=== PATIENT | male | born 1965 | race Caucasian/White ===

== ENCOUNTER 2019-11-12 14:01 | Inpatient (IN) | payer MEDICARE, OTHER ==
[~2019-11-12] VITALS: Ht 185.4 cm; Wt 119.4 kg
[2019-11-12 14:12] VITALS: BP 128/86
[2019-11-12] MEDS ORDERED: BISACODYL 5 MG EC TABLET PO PRN (15:00)
[2019-11-12] MEDS ORDERED: ACETAMINOPHEN 325 MG TABLET PO PRN (15:00)
[2019-11-12] MEDS ORDERED: METOPROLOL TARTRATE 25 MG TAB PO ONE (15:00)
[2019-11-12] MEDS ORDERED: INSULIN LISPRO 100 UNITS/ML, PEN SQ-INSULIN SCH (15:00)
[2019-11-12] MEDS ORDERED: CHLORHEXIDINE 15 ML UDC MM PRN (15:00)
[2019-11-12] MEDS ORDERED: PLEASE ENTER ALLERGIES MC SCH (15:30)
[2019-11-12] MEDS ORDERED: OMEP20TA9 PO (15:48)
[2019-11-12] MEDS ORDERED: METO-264 PO (15:48)
[2019-11-12] MEDS ORDERED: AMLO10TA8 PO (15:48)
[2019-11-12] MEDS ORDERED: TRIA1TAB5 PO (15:48)
[2019-11-12] MEDS ORDERED: LEVO100T5 PO (15:48)
[2019-11-12] MEDS ORDERED: PRAV40TA2 PO (15:48)
[2019-11-12 15:54] LABS: BASOPHILS # (AUTO) 0.06 x10^3/uL (0-0.1); BASOPHILS % (AUTO) 1 % (0-1); EOSINOPHILS # (AUTO) 0.28 x10^3/uL (0-0.4); EOSINOPHILS % (AUTO) 3 % (1-7); LYMPHOCYTES # (AUTO) 2.47 x10^3/uL (1-3.4); LYMPHOCYTES % (AUTO) 24 % (22-44); MD NO; MEAN CORPUSCULAR HEMOGLOBIN 29.3 pg (27.5-34.5); MEAN CORPUSCULAR HGB CONC 33.6 g/dL (33.2-36.2); MEAN CORPUSCULAR VOLUME 87.2 fL (81-97); MEAN PLATELET VOLUME 8.4 fL (7.4-10.4); MONOCYTES % (AUTO) 11 % (2-9); NEUTROPHILS # (AUTO) 6.54 x10^3/uL (1.8-6.8); NEUTROPHILS % (AUTO) 63 % (42-75); PLATELET COUNT 240 x10^3/uL (130-400); RED BLOOD COUNT 5.54 x10^6/uL (4.38-5.82); RED CELL DISTRIBUTION WIDTH 14.6 % (9.4-14.8)
[2019-11-12 16:04] LABS: ALANINE AMINOTRANSFERASE 51 U/L (12-78); ALBUMIN 4.2 g/dL (3.4-5.0); ANION GAP 9 mmol/L (5-15); CALCIUM 9.9 mg/dL (8.5-10.1); CHLORIDE 103 mmol/L (98-107); CREATININE 1.26 mg/dL (0.7-1.3)
[2019-11-12 16:07] LABS: ALKALINE PHOSPHATASE 104 U/L (45-117); BILIRUBIN,TOTAL 0.5 mg/dL (0.2-1.0); TOTAL PROTEIN 8.2 g/dL (6.4-8.2)
[2019-11-12 16:08] LABS: INTERNATIONAL NORMALIZED RATIO 0.94 (0.93-1.1)
[2019-11-12 19:51] VITALS: BP 131/93
[2019-11-12] MEDS: MUPIROCIN OINT 2%, 22GM TP SCH (20:50)
[2019-11-12] MEDS: SODIUM CHLORIDE FLUSH 10ML SYR IVF SCH (20:55)
[2019-11-12 21:36] LABS: MICROSCOPIC NOT IND
[2019-11-12] MEDS: PRAVASTATIN 40 MG TABLET PO SCH (22:01)
[2019-11-13 04:00] VITALS: BP 130/90
[2019-11-13 04:05] VITALS: BP 145/86
[2019-11-13] MEDS: OMEPRAZOLE 20 MG CAPSULE.DR PO SCH (04:32)
[2019-11-13] MEDS: MUPIROCIN OINT 2%, 22GM TP SCH (04:35)
[2019-11-13] MEDS ORDERED: METOPROLOL TARTRATE 25 MG TAB ONE (04:59)
[2019-11-13] MEDS ORDERED: PAPAVERINE 30 MG/ML, 2ML ONE (06:43)
[2019-11-13] MEDS ORDERED: HEPARIN 1,000 UNITS/ML, 10ML ONE (06:43)
[2019-11-13] MEDS ORDERED: FENTANYL PF 250 MCG/5ML ONE ×4 (07:05)
[2019-11-13] MEDS ORDERED: MIDAZOLAM 10MG/2 ML ONE (07:05)
[2019-11-13] MEDS ORDERED: ROCURONIUM 10MG/ML,5ML ONE ×2 (07:05→07:06)
[2019-11-13] MEDS ORDERED: AMINOCAPROIC ACID 250 MG/ML, 20ML ONE ×2 (07:06)
[2019-11-13] MEDS ORDERED: PROPOFOL 10 MG/ML, 20ML ONE (07:06)
[2019-11-13 07:09] VITALS: BP 125/80
[2019-11-13] MEDS ORDERED: ALBUMIN HUMAN 5% 500 ML IV PRN (07:30)
[2019-11-13] MEDS ORDERED: DEXMEDETOMIDINE 200 MCG in SODIUM CHLORIDE 0.9% 48 ML IV PRN ×2 (07:30→13:52)
[2019-11-13] MEDS ORDERED: PHENYLEPHRINE 50 MG in SODIUM CHLORIDE 0.9% 245 ML IV PRN ×2 (07:30→13:52)
[2019-11-13] MEDS ORDERED: CEFUROXIME 1.5 GM in SODIUM CHLORIDE 0.9% 50 ML IVPB PRN (07:30)
[2019-11-13] MEDS ORDERED: POTASSIUM CHLORIDE 80 MEQ, SODIUM BICARBONATE 8.4% 10 MEQ, MAGNESIUM SULFATE 0.5 GM, LI... IV PRN (07:30)
[2019-11-13] MEDS ORDERED: MANNITOL PMX 20% 500 ML IVPB PRN (07:30)
[2019-11-13] MEDS ORDERED: REGULAR INSULIN 100 UNITS in SODIUM CHLORIDE 0.9% 99 ML IV PRN ×2 (07:30→13:52)
[2019-11-13] MEDS ORDERED: EPINEPHRINE 5 MG in SODIUM CHLORIDE 0.9% 245 ML IV PRN ×2 (07:30→14:00)
[2019-11-13] MEDS ORDERED: VANCOMYCIN 1,600 MG in SODIUM CHLORIDE 0.9% 250 ML IVPB PRN (07:30)
[2019-11-13] MEDS: LEVOTHYROXINE 100 MCG TABLET PO SCH (09:00)
[2019-11-13] MEDS: DOCUSATE 100 MG CAPSULE PO SCH ×2 (09:00→20:03)
[2019-11-13] MEDS ORDERED: HEPARIN 1,000 UNITS/ML, 10ML IV ONE (09:26)
[2019-11-13] MEDS ORDERED: PAPAVERINE 30 MG/ML, 2ML IVPush ONE (09:27)
[2019-11-13] MEDS ORDERED: PROTAMINE SULFATE 10 MG/ML, 25ML ONE (09:51)
[2019-11-13] MEDS ORDERED: CALCIUM CHLORIDE 10%, 10ML SYR ONE (09:52)
[2019-11-13] MEDS ORDERED: VASOPRESSIN 20 UNIT/ML, 1ML ONE (13:01)
[2019-11-13] MEDS ORDERED: SODIUM BICARBONATE 1 MEQ/ML, 50ML VIAL ONE (13:37)
[2019-11-13] MEDS ORDERED: LIDOCAINE-MPF 2% ,5ML ONE (13:37)
[2019-11-13] MEDS ORDERED: ALBUMIN HUMAN 25% 50 ML ONE (13:38)
[2019-11-13] MEDS ORDERED: HEPARIN 1,000 UNITS/ML, 30ML ONE (13:38)
[2019-11-13] MEDS ORDERED: DOBUTAMINE 250 MG in SODIUM CHLORIDE 0.9% 230 ML IV PRN (13:52)
[2019-11-13] MEDS ORDERED: SODIUM CHLORIDE 0.9% 1,000 ML IV PRN (13:52)
[2019-11-13] MEDS ORDERED: NITROGLYCERIN/D5W PMX 250 ML IV PRN (13:52)
[2019-11-13] MEDS ORDERED: VASOPRESSIN 20 UNIT in SODIUM CHLORIDE 0.9% 99 ML IV PRN (13:52)
[2019-11-13] MEDS: KSCALE TO 4.5 IV SCH ×2 (14:00→21:36)
[2019-11-13] MEDS ORDERED: morphine SULFATE 10 MG/ML, 1ML IVPush PRN (14:00)
[2019-11-13] MEDS ORDERED: LACTATED RINGERS 1,000 ML IV PRN (14:00)
[2019-11-13] MEDS ORDERED: ONDANSETRON 2MG/ML, 2ML IVPush PRN (14:00)
[2019-11-13] MEDS ORDERED: ACETAMINOPHEN 650 MG SUPP PR PRN (14:00)
[2019-11-13] MEDS ORDERED: BISACODYL 10 MG SUPP PR PRN (14:00)
[2019-11-13] MEDS ORDERED: DEXTROSE 50%, 50ML SYRINGE IVPush PRN (14:00)
[2019-11-13] MEDS ORDERED: PROCHLORPERAZINE 5 MG/ML, 2ML IVPush PRN (14:00)
[2019-11-13] MEDS ORDERED: BISACODYL 5 MG EC TABLET PO PRN (14:00)
[2019-11-13] MEDS ORDERED: INSULIN REGULAR 100 UNITS/ML, 3ML VIAL IVPush PRN (14:00)
[2019-11-13] MEDS ORDERED: ACETAMINOPHEN 325 MG TABLET PO PRN (14:00)
[2019-11-13] MEDS ORDERED: GLUCAGON 1 MG IM PRN (14:00)
[2019-11-13] MEDS ORDERED: MIDAZOLAM 1 MG/ML, 5ML IVPush PRN (14:00)
[2019-11-13] MEDS ORDERED: DEXTROSE 4 GM TAB.CHEW PO PRN (14:00)
[2019-11-13] MEDS ORDERED: SODIUM BICARB 8.4%, 50ML SYRINGE IV PRN (14:00)
[2019-11-13 14:33] LABS: GLUCOSE BY BLOOD GAS ANALYZER 139 mg/dL (70-110); HEMOGLOBIN BY BLOOD GAS ANALYZ 12.2 g/dL (14.0-18.0); POTASSIUM BY BLOOD GAS ANALYZR 3.1 mmol/L (3.6-5.5)
[2019-11-13] MEDS: MAGNESIUM SULFATE 1 GM in SODIUM CHLORIDE 0.9% 100 ML IVPB SCH (14:46)
[2019-11-13] MEDS: SODIUM CHLORIDE FLUSH 10ML SYR IVF SCH ×2 (15:36→19:25)
[2019-11-13] MEDS: INSULIN LISPRO 100 UNITS/ML, PEN SQ-INSULIN SCH ×2 (16:00→20:07)
[2019-11-13] MEDS: OXYcodone IR 5MG TABLET PO PRN ×2 (17:51→21:58)
[2019-11-13] MEDS ORDERED: POTASSIUM CHLORIDE 30 MEQ in SODIUM CHLORIDE 0.9% 100 ML IV ONE (18:00)
[2019-11-13] MEDS: CEFUROXIME 1.5 GM in SODIUM CHLORIDE 0.9% 50 ML IVPB SCH (18:34)
[2019-11-13] MEDS ORDERED: ALBUMIN HUMAN 5% 500 ML IV ONE (19:00)
[2019-11-13] MEDS: VANCOMYCIN 1,700 MG in SODIUM CHLORIDE 0.9% 250 ML IVPB SCH (19:11)
[2019-11-13] MEDS: PRAVASTATIN 40 MG TABLET PO SCH (20:03)
[2019-11-13] MEDS: HYDROcodone/APAP 5/325 TABLET PO PRN (20:03)
[2019-11-13] MEDS: MUPIROCIN OINT 2%, 22GM NAS SCH (20:04)
[2019-11-14] MEDS: INSULIN LISPRO 100 UNITS/ML, PEN SQ-INSULIN SCH ×6 (00:02→20:16)
[2019-11-14] MEDS: HYDROcodone/APAP 5/325 TABLET PO PRN ×5 (00:04→23:31)
[2019-11-14] MEDS: OXYcodone IR 5MG TABLET PO PRN ×4 (02:27→20:15)
[2019-11-14 03:23] LABS: BASOPHILS # (AUTO) 0.01 x10^3/uL (0-0.1); BASOPHILS % (AUTO) 0 % (0-1); EOSINOPHILS # (AUTO) 0.05 x10^3/uL (0-0.4); EOSINOPHILS % (AUTO) 0 % (1-7); LYMPHOCYTES # (AUTO) 1.14 x10^3/uL (1-3.4); LYMPHOCYTES % (AUTO) 8 % (22-44); MD NO; MEAN CORPUSCULAR HEMOGLOBIN 29.3 pg (27.5-34.5); MEAN CORPUSCULAR HGB CONC 33.4 g/dL (33.2-36.2); MEAN CORPUSCULAR VOLUME 87.9 fL (81-97); MEAN PLATELET VOLUME 8.4 fL (7.4-10.4); MONOCYTES # (AUTO) 1.22 x10^3/uL (0.2-0.8); MONOCYTES % (AUTO) 8 % (2-9); NEUTROPHILS # (AUTO) 12.43 x10^3/uL (1.8-6.8); NEUTROPHILS % (AUTO) 84 % (42-75); PLATELET COUNT 148 x10^3/uL (130-400); RED BLOOD COUNT 3.75 x10^6/uL (4.38-5.82); RED CELL DISTRIBUTION WIDTH 14.5 % (9.4-14.8)
[2019-11-14 03:24] LABS: INTERNATIONAL NORMALIZED RATIO 1.01 (0.93-1.1); PROTHROMBIN TIME 10.7 Seconds (9.6-11.5)
[2019-11-14 03:25] LABS: ALBUMIN 3.5 g/dL (3.4-5.0); ANION GAP 8 mmol/L (5-15); CALCIUM 7.5 mg/dL (8.5-10.1); CHLORIDE 109 mmol/L (98-107); CREATININE 1.43 mg/dL (0.7-1.3)
[2019-11-14] MEDS: KSCALE TO 4.5 IV SCH ×2 (04:04→10:00)
[2019-11-14] MEDS: CEFUROXIME 1.5 GM in SODIUM CHLORIDE 0.9% 50 ML IVPB SCH (06:33)
[2019-11-14] MEDS: VANCOMYCIN 1,700 MG in SODIUM CHLORIDE 0.9% 250 ML IVPB SCH (07:58)
[2019-11-14] MEDS ORDERED: FUROSEMIDE 20 MG/2 ML ONE (08:55)
[2019-11-14] MEDS ORDERED: MAGNESIUM HYDROXIDE 8%, 30ML UDC PO PRN (09:00)
[2019-11-14] MEDS: ASPIRIN 81 MG TABLET EC PO SCH (09:02)
[2019-11-14] MEDS: LEVOTHYROXINE 100 MCG TABLET PO SCH (09:02)
[2019-11-14] MEDS: OMEPRAZOLE 20 MG CAPSULE.DR PO SCH (09:03)
[2019-11-14] MEDS: DOCUSATE 100 MG CAPSULE PO SCH ×2 (09:03→20:13)
[2019-11-14] MEDS: METOPROLOL TARTRATE 25 MG TAB PO/NG SCH ×2 (09:03→20:14)
[2019-11-14] MEDS: FUROSEMIDE 20 MG/2 ML IV SCH (09:04)
[2019-11-14] MEDS: SODIUM CHLORIDE FLUSH 10ML SYR IVF SCH ×3 (09:04→20:15)
[2019-11-14] MEDS: MUPIROCIN OINT 2%, 22GM NAS SCH ×2 (09:05→20:14)
[2019-11-14] MEDS: AMIODARONE 200 MG TABLET PO SCH (12:12)
[2019-11-14 13:26] VITALS: BP 103/69
[2019-11-14] MEDS ORDERED: MAGNESIUM SULFATE PMX 2GM/50ML 0 ML ONE (14:34)
[2019-11-14 14:50] VITALS: BP 117/67
[2019-11-14] MEDS: MAGNESIUM SULFATE 1 GM in SODIUM CHLORIDE 0.9% 100 ML IVPB SCH (15:03)
[2019-11-14 16:43] LABS: FREE T4 (FREE THYROXINE) 1.07 ng/dL (0.76-1.46)
[2019-11-14 19:49] VITALS: BP 109/62
[2019-11-14] MEDS: ATORVASTATIN 80 MG TABLET PO SCH (20:13)
[2019-11-14] MEDS: CHLORHEXIDINE 15 ML UDC MM SCH (20:14)
[2019-11-15 01:57] VITALS: BP 111/63
[2019-11-15] MEDS: OXYcodone IR 5MG TABLET PO PRN ×3 (03:21→20:15)
[2019-11-15] MEDS: OMEPRAZOLE 20 MG CAPSULE.DR PO SCH (05:38)
[2019-11-15 06:03] LABS: BASOPHILS # (AUTO) 0.04 x10^3/uL (0-0.1); BASOPHILS % (AUTO) 0 % (0-1); EOSINOPHILS # (AUTO) 0.02 x10^3/uL (0-0.4); EOSINOPHILS % (AUTO) 0 % (1-7); LYMPHOCYTES # (AUTO) 1.61 x10^3/uL (1-3.4); LYMPHOCYTES % (AUTO) 13 % (22-44); MD NO; MEAN CORPUSCULAR HEMOGLOBIN 29.7 pg (27.5-34.5); MEAN CORPUSCULAR HGB CONC 33.6 g/dL (33.2-36.2); MEAN CORPUSCULAR VOLUME 88.2 fL (81-97); MEAN PLATELET VOLUME 8.3 fL (7.4-10.4); MONOCYTES # (AUTO) 1.09 x10^3/uL (0.2-0.8); MONOCYTES % (AUTO) 9 % (2-9); NEUTROPHILS # (AUTO) 9.68 x10^3/uL (1.8-6.8); NEUTROPHILS % (AUTO) 78 % (42-75); PLATELET COUNT 121 x10^3/uL (130-400); RED BLOOD COUNT 3.26 x10^6/uL (4.38-5.82)
[2019-11-15 06:04] LABS: INTERNATIONAL NORMALIZED RATIO 0.96 (0.93-1.1); PROTHROMBIN TIME 10.2 Seconds (9.6-11.5)
[2019-11-15 06:07] LABS: ANION GAP 6 mmol/L (5-15); CALCIUM 8.2 mg/dL (8.5-10.1); CHLORIDE 101 mmol/L (98-107); CREATININE 1.01 mg/dL (0.7-1.3)
[2019-11-15] MEDS: HYDROcodone/APAP 5/325 TABLET PO PRN ×2 (06:19→14:16)
[2019-11-15] MEDS: INSULIN LISPRO 100 UNITS/ML, PEN SQ-INSULIN SCH ×4 (06:53→20:18)
[2019-11-15 06:55] VITALS: BP 124/75
[2019-11-15] MEDS ORDERED: POTASSIUM CHLORIDE 20 MEQ TAB.ER.PRT PO ONE (07:30)
[2019-11-15] MEDS: ENOXAPARIN 40 MG/0.4 ML SQ SCH (09:11)
[2019-11-15] MEDS: MUPIROCIN OINT 2%, 22GM NAS SCH ×2 (09:11→20:16)
[2019-11-15] MEDS: DOCUSATE 100 MG CAPSULE PO SCH ×2 (09:11→20:16)
[2019-11-15] MEDS: LEVOTHYROXINE 100 MCG TABLET PO SCH (09:11)
[2019-11-15] MEDS: CHLORHEXIDINE 15 ML UDC MM SCH ×2 (09:11→20:15)
[2019-11-15] MEDS: ASPIRIN 81 MG TABLET EC PO SCH (09:12)
[2019-11-15] MEDS: AMIODARONE 200 MG TABLET PO SCH (09:12)
[2019-11-15] MEDS: FUROSEMIDE 20 MG/2 ML IV SCH (09:12)
[2019-11-15] MEDS: METOPROLOL TARTRATE 25 MG TAB PO/NG SCH ×2 (09:13→20:16)
[2019-11-15] MEDS: SODIUM CHLORIDE FLUSH 10ML SYR IVF SCH ×4 (09:14→20:17)
[2019-11-15] MEDS ORDERED: LIDOCAINE 1%, 10ML ONE (10:27)
[2019-11-15] MEDS: MAGNESIUM SULFATE 1 GM in SODIUM CHLORIDE 0.9% 100 ML IVPB SCH (14:16)
[2019-11-15 14:51] VITALS: BP 111/64
[2019-11-15 18:28] VITALS: BP 121/72
[2019-11-15] MEDS: ATORVASTATIN 80 MG TABLET PO SCH (20:16)
[2019-11-16 01:00] VITALS: BP 120/74
[2019-11-16 04:28] LABS: BASOPHILS # (AUTO) 0.02 x10^3/uL (0-0.1); BASOPHILS % (AUTO) 0 % (0-1); EOSINOPHILS # (AUTO) 0.14 x10^3/uL (0-0.4); EOSINOPHILS % (AUTO) 1 % (1-7); LYMPHOCYTES # (AUTO) 1.49 x10^3/uL (1-3.4); LYMPHOCYTES % (AUTO) 14 % (22-44); MD NO; MEAN CORPUSCULAR HEMOGLOBIN 29.6 pg (27.5-34.5); MEAN CORPUSCULAR HGB CONC 33.4 g/dL (33.2-36.2); MEAN CORPUSCULAR VOLUME 88.5 fL (81-97); MEAN PLATELET VOLUME 8.1 fL (7.4-10.4); MONOCYTES # (AUTO) 0.92 x10^3/uL (0.2-0.8); MONOCYTES % (AUTO) 9 % (2-9); NEUTROPHILS # (AUTO) 8.06 x10^3/uL (1.8-6.8); NEUTROPHILS % (AUTO) 76 % (42-75); PLATELET COUNT 142 x10^3/uL (130-400); RED CELL DISTRIBUTION WIDTH 14.7 % (9.4-14.8)
[2019-11-16 04:40] LABS: ANION GAP 5 mmol/L (5-15); CALCIUM 7.9 mg/dL (8.5-10.1); CHLORIDE 101 mmol/L (98-107)
[2019-11-16] MEDS: OMEPRAZOLE 20 MG CAPSULE.DR PO SCH (05:37)
[2019-11-16] MEDS: INSULIN LISPRO 100 UNITS/ML, PEN SQ-INSULIN SCH (07:00)
[2019-11-16] MEDS ORDERED: POTASSIUM CHLORIDE 20 MEQ TAB.ER.PRT PO ONE (08:00)
[2019-11-16] MEDS ORDERED: POTASSIUM CHLORIDE 10 MEQ TABLET.ER PO SCH (08:00)
[2019-11-16] MEDS: LEVOTHYROXINE 100 MCG TABLET PO SCH (08:42)
[2019-11-16] MEDS: DOCUSATE 100 MG CAPSULE PO SCH ×2 (08:42→22:04)
[2019-11-16] MEDS: AMIODARONE 200 MG TABLET PO SCH (08:43)
[2019-11-16] MEDS: OXYcodone IR 5MG TABLET PO PRN ×2 (08:43→17:47)
[2019-11-16] MEDS: ASPIRIN 81 MG TABLET EC PO SCH (08:44)
[2019-11-16] MEDS: FUROSEMIDE 20 MG/2 ML IV SCH (08:44)
[2019-11-16] MEDS: METOPROLOL TARTRATE 25 MG TAB PO/NG SCH ×2 (08:44→22:05)
[2019-11-16] MEDS: CLOPIDOGREL 75 MG TABLET PO SCH (08:44)
[2019-11-16] MEDS: SODIUM CHLORIDE FLUSH 10ML SYR IVF SCH ×4 (08:45→22:06)
[2019-11-16 08:50] VITALS: BP 109/65
[2019-11-16] MEDS: ENOXAPARIN 40 MG/0.4 ML SQ SCH (08:53)
[2019-11-16] MEDS: CHLORHEXIDINE 15 ML UDC MM SCH (09:09)
[2019-11-16] MEDS: MUPIROCIN OINT 2%, 22GM NAS SCH ×2 (09:09→22:05)
[2019-11-16] MEDS ORDERED: SODIUM CHLORIDE 0.9% 1,000 ML IV SCH ×2 (11:00→14:42)
[2019-11-16] MEDS: NS + 40MEQ KCL 1,000 ML IV SCH (11:40)
[2019-11-16] MEDS: HYDROcodone/APAP 5/325 TABLET PO PRN ×3 (11:48→23:05)
[2019-11-16] MEDS ORDERED: FENTANYL PF 100 MCG/2ML ONE (13:41)
[2019-11-16] MEDS ORDERED: MIDAZOLAM 1 MG/ML, 5ML ONE (13:41)
[2019-11-16] MEDS ORDERED: TICAGRELOR 90 MG TABLET ONE (13:41)
[2019-11-16] MEDS ORDERED: BIVALIRUDIN 250 MG ONE (13:41)
[2019-11-16] MEDS ORDERED: VERAPAMIL 2.5 MG/ML, 2ML ONE (13:41)
[2019-11-16] MEDS ORDERED: HEPARIN 1,000 UNITS/ML, 10ML ONE (13:41)
[2019-11-16] MEDS ORDERED: PRASUGREL 10 MG TABLET ONE (14:30)
[2019-11-16] MEDS ORDERED: BIVALIRUDIN 250 MG in SODIUM CHLORIDE 0.9% 50 ML IV SCH (14:42)
[2019-11-16] MEDS ORDERED: CLOPIDOGREL 300 MG TABLET PO ONE (15:00)
[2019-11-16 15:10] VITALS: BP 111/69
[2019-11-16 20:26] VITALS: BP 131/68
[2019-11-16] MEDS: ATORVASTATIN 80 MG TABLET PO SCH (22:05)
[2019-11-16 22:06] VITALS: BP 112/63
[2019-11-16 23:26] VITALS: BP 131/70
[2019-11-17] MEDS: NS + 40MEQ KCL 1,000 ML IV SCH ×2 (01:26→15:26)
[2019-11-17] MEDS: HYDROcodone/APAP 5/325 TABLET PO PRN ×5 (02:09→21:31)
[2019-11-17 05:35] LABS: BASOPHILS # (AUTO) 0.03 x10^3/uL (0-0.1); BASOPHILS % (AUTO) 0 % (0-1); EOSINOPHILS # (AUTO) 0.27 x10^3/uL (0-0.4); EOSINOPHILS % (AUTO) 3 % (1-7); LYMPHOCYTES # (AUTO) 1.43 x10^3/uL (1-3.4); LYMPHOCYTES % (AUTO) 16 % (22-44); MD NO; MEAN CORPUSCULAR HEMOGLOBIN 29.4 pg (27.5-34.5); MEAN CORPUSCULAR HGB CONC 33.3 g/dL (33.2-36.2); MEAN CORPUSCULAR VOLUME 88.3 fL (81-97); MEAN PLATELET VOLUME 7.6 fL (7.4-10.4); MONOCYTES # (AUTO) 0.82 x10^3/uL (0.2-0.8); MONOCYTES % (AUTO) 9 % (2-9); NEUTROPHILS # (AUTO) 6.45 x10^3/uL (1.8-6.8); NEUTROPHILS % (AUTO) 72 % (42-75); PLATELET COUNT 172 x10^3/uL (130-400); RED BLOOD COUNT 2.93 x10^6/uL (4.38-5.82); RED CELL DISTRIBUTION WIDTH 14.4 % (9.4-14.8)
[2019-11-17 05:39] LABS: ANION GAP 7 mmol/L (5-15); CALCIUM 7.7 mg/dL (8.5-10.1); CHLORIDE 102 mmol/L (98-107)
[2019-11-17 05:44] LABS: CREATININE 0.93 mg/dL (0.7-1.3)
[2019-11-17] MEDS: OMEPRAZOLE 20 MG CAPSULE.DR PO SCH (06:22)
[2019-11-17 07:28] VITALS: BP 110/69
[2019-11-17] MEDS: LEVOTHYROXINE 100 MCG TABLET PO SCH (10:03)
[2019-11-17] MEDS: DOCUSATE 100 MG CAPSULE PO SCH ×2 (10:04→21:30)
[2019-11-17] MEDS: POTASSIUM CHLORIDE 10 MEQ TABLET.ER PO SCH (10:04)
[2019-11-17] MEDS: CLOPIDOGREL 75 MG TABLET PO SCH (10:04)
[2019-11-17] MEDS: ASPIRIN 81 MG TABLET EC PO SCH (10:05)
[2019-11-17] MEDS: METOPROLOL TARTRATE 25 MG TAB PO/NG SCH ×2 (10:05→21:31)
[2019-11-17] MEDS: AMIODARONE 200 MG TABLET PO SCH (10:06)
[2019-11-17] MEDS: FUROSEMIDE 20 MG/2 ML IV SCH (10:06)
[2019-11-17] MEDS: ENOXAPARIN 40 MG/0.4 ML SQ SCH (10:06)
[2019-11-17] MEDS: SODIUM CHLORIDE FLUSH 10ML SYR IVF SCH ×4 (10:07→21:32)
[2019-11-17] MEDS: MUPIROCIN OINT 2%, 22GM NAS SCH ×2 (10:09→21:32)
[2019-11-17] MEDS ORDERED: MAGNESIUM SULFATE PMX 2GM/50ML 50 ML IV ONE (10:30)
[2019-11-17] MEDS ORDERED: POTASSIUM CHLORIDE 20 MEQ TAB.ER.PRT PO ONE (10:30)
[2019-11-17 12:51] VITALS: BP 109/71
[2019-11-17 20:24] VITALS: BP 116/73
[2019-11-17] MEDS: ATORVASTATIN 80 MG TABLET PO SCH (21:31)
[2019-11-18] MEDS: HYDROcodone/APAP 5/325 TABLET PO PRN ×5 (02:08→20:52)
[2019-11-18 02:28] VITALS: BP 115/69
[2019-11-18] MEDS: OMEPRAZOLE 20 MG CAPSULE.DR PO SCH (06:09)
[2019-11-18 06:16] LABS: ANION GAP 8 mmol/L (5-15); CALCIUM 7.8 mg/dL (8.5-10.1); CHLORIDE 110 mmol/L (98-107)
[2019-11-18 06:19] LABS: CREATININE 0.89 mg/dL (0.7-1.3)
[2019-11-18 06:28] VITALS: BP 106/64
[2019-11-18 07:43] LABS: BASOPHILS # (AUTO) 0.02 x10^3/uL (0-0.1); BASOPHILS % (AUTO) 0 % (0-1); EOSINOPHILS % (AUTO) 4 % (1-7); LYMPHOCYTES # (AUTO) 1.61 x10^3/uL (1-3.4); LYMPHOCYTES % (AUTO) 20 % (22-44); MD NO; MEAN CORPUSCULAR HEMOGLOBIN 29.1 pg (27.5-34.5); MEAN CORPUSCULAR HGB CONC 33.2 g/dL (33.2-36.2); MEAN CORPUSCULAR VOLUME 87.7 fL (81-97); MEAN PLATELET VOLUME 6.3 fL (7.4-10.4); MONOCYTES # (AUTO) 0.67 x10^3/uL (0.2-0.8); MONOCYTES % (AUTO) 8 % (2-9); NEUTROPHILS # (AUTO) 5.43 x10^3/uL (1.8-6.8); NEUTROPHILS % (AUTO) 68 % (42-75); PLATELET COUNT 243 x10^3/uL (130-400); RED BLOOD COUNT 3.16 x10^6/uL (4.38-5.82); RED CELL DISTRIBUTION WIDTH 14.9 % (9.4-14.8)
[2019-11-18] MEDS: POTASSIUM CHLORIDE 10 MEQ TABLET.ER PO SCH (09:00)
[2019-11-18] MEDS: LEVOTHYROXINE 100 MCG TABLET PO SCH (09:00)
[2019-11-18] MEDS: DOCUSATE 100 MG CAPSULE PO SCH ×2 (09:00→20:33)
[2019-11-18] MEDS: CLOPIDOGREL 75 MG TABLET PO SCH (09:00)
[2019-11-18] MEDS: AMIODARONE 200 MG TABLET PO SCH (09:00)
[2019-11-18] MEDS: ASPIRIN 81 MG TABLET EC PO SCH (09:00)
[2019-11-18] MEDS: SODIUM CHLORIDE FLUSH 10ML SYR IVF SCH ×4 (09:00→21:00)
[2019-11-18] MEDS: MUPIROCIN OINT 2%, 22GM NAS SCH ×2 (09:00→20:52)
[2019-11-18] MEDS: FUROSEMIDE 20 MG/2 ML IV SCH (09:00)
[2019-11-18] MEDS: ENOXAPARIN 40 MG/0.4 ML SQ SCH (09:00)
[2019-11-18] MEDS: NS + 40MEQ KCL 1,000 ML IV SCH ×2 (09:00→22:23)
[2019-11-18] MEDS: METOPROLOL TARTRATE 25 MG TAB PO/NG SCH ×2 (09:00→20:51)
[2019-11-18 13:43] VITALS: BP 121/68
[2019-11-18 20:00] VITALS: BP 114/61
[2019-11-18] MEDS: ATORVASTATIN 80 MG TABLET PO SCH (20:51)
[2019-11-19 01:26] VITALS: BP 132/81
[2019-11-19] MEDS: HYDROcodone/APAP 5/325 TABLET PO PRN ×5 (01:35→21:41)
[2019-11-19 05:50] LABS: ANION GAP 4 mmol/L (5-15); CALCIUM 8.2 mg/dL (8.5-10.1); CHLORIDE 110 mmol/L (98-107); CREATININE 1.03 mg/dL (0.7-1.3)
[2019-11-19] MEDS: OMEPRAZOLE 20 MG CAPSULE.DR PO SCH (06:19)
[2019-11-19 06:37] VITALS: BP 131/71
[2019-11-19] MEDS: LEVOTHYROXINE 100 MCG TABLET PO SCH (07:51)
[2019-11-19] MEDS: ENOXAPARIN 40 MG/0.4 ML SQ SCH (10:29)
[2019-11-19] MEDS: CLOPIDOGREL 75 MG TABLET PO SCH (10:29)
[2019-11-19] MEDS: DOCUSATE 100 MG CAPSULE PO SCH (10:29)
[2019-11-19] MEDS: OXYcodone IR 5MG TABLET PO PRN (10:29)
[2019-11-19] MEDS: AMIODARONE 200 MG TABLET PO SCH (10:30)
[2019-11-19] MEDS: ASPIRIN 81 MG TABLET EC PO SCH (10:30)
[2019-11-19] MEDS: METOPROLOL TARTRATE 25 MG TAB PO/NG SCH ×2 (10:30→21:10)
[2019-11-19] MEDS: SODIUM CHLORIDE FLUSH 10ML SYR IVF SCH ×2 (10:30→21:10)
[2019-11-19 13:16] VITALS: BP 132/83
[2019-11-19 20:17] VITALS: BP 125/74
[2019-11-19] MEDS: ATORVASTATIN 80 MG TABLET PO SCH (21:10)
[2019-11-20] MEDS: HYDROcodone/APAP 5/325 TABLET PO PRN ×6 (01:45→23:42)
[2019-11-20 02:00] VITALS: BP 128/78
[2019-11-20 05:24] LABS: ANION GAP 5 mmol/L (5-15); CALCIUM 8.9 mg/dL (8.5-10.1); CHLORIDE 107 mmol/L (98-107); CREATININE 1.12 mg/dL (0.7-1.3)
[2019-11-20] MEDS: OMEPRAZOLE 20 MG CAPSULE.DR PO SCH (05:54)
[2019-11-20] MEDS: LEVOTHYROXINE 100 MCG TABLET PO SCH (05:55)
[2019-11-20 07:25] VITALS: BP 117/73
[2019-11-20] MEDS ORDERED: ASPI81TA45 PO (08:53)
[2019-11-20] MEDS ORDERED: ATOR-2 PO (08:53)
[2019-11-20] MEDS ORDERED: AMIO200T42 PO (08:53)
[2019-11-20] MEDS ORDERED: CLOP75TA PO (08:53)
[2019-11-20] MEDS ORDERED: DOCU100C33 PO (08:53)
[2019-11-20 09:29] LABS: BASOPHILS # (AUTO) 0.07 x10^3/uL (0-0.1); BASOPHILS % (AUTO) 1 % (0-1); EOSINOPHILS # (AUTO) 0.43 x10^3/uL (0-0.4); EOSINOPHILS % (AUTO) 5 % (1-7); LYMPHOCYTES # (AUTO) 1.86 x10^3/uL (1-3.4); LYMPHOCYTES % (AUTO) 20 % (22-44); MD NO; MEAN CORPUSCULAR HEMOGLOBIN 29.2 pg (27.5-34.5); MEAN CORPUSCULAR HGB CONC 32.6 g/dL (33.2-36.2); MEAN CORPUSCULAR VOLUME 89.6 fL (81-97); MEAN PLATELET VOLUME 6.6 fL (7.4-10.4); MONOCYTES # (AUTO) 0.56 x10^3/uL (0.2-0.8); MONOCYTES % (AUTO) 6 % (2-9); NEUTROPHILS # (AUTO) 6.41 x10^3/uL (1.8-6.8); NEUTROPHILS % (AUTO) 69 % (42-75); PLATELET COUNT 356 x10^3/uL (130-400); RED BLOOD COUNT 3.62 x10^6/uL (4.38-5.82); RED CELL DISTRIBUTION WIDTH 14.7 % (9.4-14.8)
[2019-11-20] MEDS: ENOXAPARIN 40 MG/0.4 ML SQ SCH (10:31)
[2019-11-20] MEDS: DOCUSATE 100 MG CAPSULE PO SCH (10:31)
[2019-11-20] MEDS: CLOPIDOGREL 75 MG TABLET PO SCH (10:31)
[2019-11-20] MEDS: ASPIRIN 81 MG TABLET EC PO SCH (10:32)
[2019-11-20] MEDS: AMIODARONE 200 MG TABLET PO SCH (10:32)
[2019-11-20] MEDS: SODIUM CHLORIDE FLUSH 10ML SYR IVF SCH ×2 (10:32→20:04)
[2019-11-20] MEDS: METOPROLOL TARTRATE 25 MG TAB PO/NG SCH ×2 (10:32→20:03)
[2019-11-20 13:43] VITALS: BP 107/67
[2019-11-20 18:53] VITALS: BP 111/64
[2019-11-20] MEDS: ATORVASTATIN 80 MG TABLET PO SCH (20:03)
[2019-11-21 01:35] VITALS: BP 114/62
[2019-11-21] MEDS: OMEPRAZOLE 20 MG CAPSULE.DR PO SCH (04:30)
[2019-11-21] MEDS: HYDROcodone/APAP 5/325 TABLET PO PRN (04:30)
[2019-11-21] MEDS: LEVOTHYROXINE 100 MCG TABLET PO SCH (04:31)
[2019-11-21 05:35] LABS: ANION GAP 6 mmol/L (5-15); CALCIUM 8.6 mg/dL (8.5-10.1); CHLORIDE 108 mmol/L (98-107)
[2019-11-21 05:36] LABS: CREATININE 1.21 mg/dL (0.7-1.3)
[2019-11-21 07:06] VITALS: BP 119/77
[2019-11-21] MEDS: SODIUM CHLORIDE FLUSH 10ML SYR IVF SCH (07:20)
[2019-11-21] MEDS: DOCUSATE 100 MG CAPSULE PO SCH (07:20)
[2019-11-21] MEDS: ENOXAPARIN 40 MG/0.4 ML SQ SCH (07:20)
[2019-11-21] MEDS: ASPIRIN 81 MG TABLET EC PO SCH (07:31)
[2019-11-21] MEDS: METOPROLOL TARTRATE 25 MG TAB PO/NG SCH (07:31)
[2019-11-21] MEDS: AMIODARONE 200 MG TABLET PO SCH (07:31)
[2019-11-21] MEDS: CLOPIDOGREL 75 MG TABLET PO SCH (07:31)
== END 2019-11-21 09:26 | disposition home or self-care (01) | DRG 231 ==
LOC: 5SO 14:01 → UNDOADMIN 14:01 → CSU 11-13 08:21 → 5SO 11-14 13:23 → DCLOUNGE 11-21 09:15
PROVIDERS: ADMIT Thoracic Surgery (Cardiothoracic Vascular Surgery); ATTEND Family Medicine
PROC: 021209W Bypass Coronary Artery, Three Arteries from Aorta with Autologous Venous Tissue, Open Approach (ICD-10-PCS; 2019-11-13)
PROC: 06BP3ZZ Excision of Right Saphenous Vein, Percutaneous Approach (ICD-10-PCS; 2019-11-13)
PROC: 4A033BC Measurement of Arterial Pressure, Coronary, Percutaneous Approach (ICD-10-PCS; 2019-11-13)
PROC: 5A1221Z Performance of Cardiac Output, Continuous (ICD-10-PCS; 2019-11-13)
PROC: 02100Z9 Bypass Coronary Artery, One Artery from Left Internal Mammary, Open Approach (ICD-10-PCS; principal; 2019-11-13 07:30)
PROC: 027034Z Dilation of Coronary Artery, One Artery with Drug-eluting Intraluminal Device, Percutaneous Approach (ICD-10-PCS; 2019-11-16)
DX: I25.119 Atherosclerotic heart disease of native coronary artery with unspecified angina pectoris (principal); N17.0 Acute kidney failure with tubular necrosis; J95.821 Acute postprocedural respiratory failure; J98.11 Atelectasis; E87.2 Acidosis; E78.5 Hyperlipidemia, unspecified; E03.9 Hypothyroidism, unspecified; E87.5 Hyperkalemia; D64.9 Anemia, unspecified; R73.9 Hyperglycemia, unspecified; I12.9 Hypertensive chronic kidney disease with stage 1 through stage 4 chronic kidney disease, or unspecified chronic kidney disease; N18.9 Chronic kidney disease, unspecified; E66.9 Obesity, unspecified; G89.18 Other acute postprocedural pain; Z72.0 Tobacco use; Z88.5 Allergy status to narcotic agent; Z90.49 Acquired absence of other specified parts of digestive tract; Z82.49 Family history of ischemic heart disease and other diseases of the circulatory system
CPT/HCPCS: 32555; 36415; 36600; 93455; C9600; J3490; S0017; 71045; 71046; 80048; 80053; 81003; 82040; 82330; 82800; 82803; 82810; 82947; 82962; 83036; 83735; 84132; 84295; 84439; 84443; 85014; 85018; 85025; 85049; 85347; 85610; 85730; 86850; 86900; 86923; 87081; 93005; 93312; 93321; 93325; 94002; 99156; C1760; C1769; C1894; G0378; J0171; J0583; J0697; J1644; J1650; J1815; J2250; J2704; J2720; J3010; J3370; J3475; J3480; P9045; P9047; C1725; C1751; C1874; C1887; J1940; J2370; J2440; J7050; Q9967